=== PATIENT | male | born 1955 | race Caucasian/White ===

== ENCOUNTER 2017-07-01 07:52 | Emergency (ER) | payer OTHER ==
[2017-07-01 07:55] VITALS: BP 183/82; PULSE 70; RESP 14; TEMP 97.9; O2SAT 99
[2017-07-01] MEDS ORDERED: ASPI81CH CHEW ×2 (08:12)
[2017-07-01] MEDS ORDERED: ENAL20TA PO ×2 (08:12)
[2017-07-01] MEDS ORDERED: OMEP20TA PO ×2 (08:12)
[2017-07-01] MEDS ORDERED: KETOROLAC TROMETHAMINE 30 MG/ML (IVP) VIAL IV PUSH ONE ×2 (08:15)
[2017-07-01] MEDS ORDERED: ONDANSETRON HCL 4 MG/2 ML VIAL IV PUSH ONE ×2 (08:15)
[2017-07-01] MEDS ORDERED: SODIUM CHLOR 0.9% 1000 ML INJ 1,000 ML IV ONE ×2 (08:15)
[2017-07-01 08:30] VITALS: BP 156/94; PULSE 60; RESP 15; O2SAT 99
[2017-07-01 08:30] LABS: AUTOMATED NEUTROPHIL # 10.9 TH/MM3 (1.8-7.7); BACTERIA, URINE RARE /hpf; BASOPHIL % 0.3 % (0.0-2.0); BILIRUBIN, URINE NEG (NEG); BLOOD, URINE LARGE (NEG); EOSINOPHIL % 0.2 % (0.0-4.0); GLUCOSE,URINE NEG (NEG); HEMATOCRIT 46.7 % (39.0-51.0); HEMOGLOBIN 15.6 GM/DL (13.0-17.0); HYALINE CAST, URINE 1 /lpf (RARE); KETONE, URINE NEG (NEG); LYMPH % 9.4 % (9.0-44.0); LYMPHOCYTE # 1.2 TH/MM3 (1.0-4.8); MEAN CELL VOLUME 90.7 FL (80.0-100.0); MEAN CORPUSCULAR HEMOGLOBIN 30.4 PG (27.0-34.0); MEAN CORPUSCULAR HGB CONC 33.5 % (32.0-36.0); MEAN PLATELET VOLUME 9.5 FL (7.0-11.0); MONO % 5.7 % (0.0-8.0); MONOCYTE # 0.7 TH/MM3 (0-0.9); MUCUS URINE MOD /lpf (OCC); NEUT % 84.4 % (16.0-70.0); NITRITE,URINE NEG (NEG); PH, URINE 5.5 (5.0-8.5); PLATELET COUNT 249 TH/MM3 (150-450); RED BLOOD COUNT 5.15 MIL/MM3 (4.50-5.90); RED CELL DISTRIBUTION WIDTH 13.9 % (11.6-17.2); URINE COLOR YELLOW (YELLW/STRAW); URINE LEUKOCYTE ESTERASE NEG (NEG); WHITE BLOOD COUNT 12.9 TH/MM3 (4.0-11.0)
[2017-07-01 08:47] LABS: ALBUMIN 3.6 GM/DL (3.4-5.0); ALT (GPT) 27 U/L (12-78); AST (GOT) 18 U/L (15-37); BICARBONATE 25.7 MEQ/L (21.0-32.0); BLOOD UREA NITROGEN 16 MG/DL (7-18); CALCIUM 8.9 MG/DL (8.5-10.1); CHLORIDE 106 MEQ/L (98-107); CREATININE 1.14 MG/DL (0.60-1.30); GLOMERULAR FILTRATION RATE 65 ML/MIN (>89); GLUCOSE,RANDOM 116 MG/DL (74-106); LIPASE 179 U/L (73-393); SODIUM (NA) 140 MEQ/L (136-145)
[2017-07-01 08:50] LABS: ALKALINE PHOSPHATASE 84 U/L (45-117); TOTAL BILIRUBIN ADULT 0.4 MG/DL (0.2-1.0); TOTAL PROTEIN 7.4 GM/DL (6.4-8.2)
--- NOTE | 2017-07-01 08:55 | PD ---
HPI Chief Complaint: Flank/Kidney Pain Time Seen by Provider: 08:00 Travel History International Travel<30 days: No Contact w/Intl Traveler<30days: No Traveled to known affect area: No History of Present Illness HPI 62-year-old male presents with left flank pain that is been present since about 5 AM this morning. He states he is also nauseous. He denies any other concurrent complaints. He states the pain goes into his lower groin. He states he's had a kidney stone before couple years ago. He states he lives locally but has not had to come to the hospital before recently. Quality pain is sharp. Severity severe. He denies specific modifying factors. [employer] line is used to supplement history given patient speaks [place] [facility] Past Medical History Hypertension: Yes Kidney Stones: Yes Past Surgical History Surgical History: No Previous Surgery Social History Alcohol Use: No Tobacco Use: No Substance Use: No Allergies-Medications (Allergen,Severity, Reaction): Coded Allergies: moxifloxacin (Verified Allergy, Unknown, 07/01/17) Reported Meds & Prescriptions Reported Meds & Active Scripts Active Reported Aspirin 81 Mg Chew 81 Mg CHEW DAILY Enalapril (Enalapril Maleate) 20 Mg Tab 20 Mg PO DAILY Omeprazole 20 Mg Tab 20 Mg PO DAILY Review of Systems Except as stated in HPI: all other systems reviewed are Neg Physical Exam Narrative GENERAL: Well-nourished, well-developed patient. Uncomfortable SKIN: Warm and dry. HEAD: Normocephalic and atraumatic. EYES: No injection or drainage. ENT: No nasal drainage noted. NECK: Supple, trachea midline. CARDIOVASCULAR: Regular rate and rhythm RESPIRATORY: No increased effort. No accessory muscle use. GASTROINTESTINAL: Abdomen soft, tender left abdomen, nondistended. No rebound EXTREMITIES: No edema. NEUROLOGICAL: Awake and alert. Motor and sensory grossly within normal limits. Normal speech. Data Data Last Documented VS Vital Signs Date Time Temp Pulse Resp B/P (MAP) Pulse Ox O2 Delivery O2 Flow Rate FiO2 07/01/17 08:09 18 07/01/17 07:55 97.9 70 183/82 (115) 99 Orders Orders Complete Blood Count With Diff (07/01/17 08:00) Comprehensive Metabolic Panel (07/01/17 08:00) Urinalysis - C+S If Indicated (07/01/17 08:00) Lipase (07/01/17 08:00) Ct Abd/Pel W/O Iv Contrast (07/01/17 ) Iv Access Insert/Monitor (07/01/17 08:00) Ketorolac Inj (Toradol Inj) (07/01/17 08:15) Ondansetron Inj (Zofran Inj) (07/01/17 08:15) Sodium Chlor 0.9% 1000 Ml Inj (Ns 1000 M (07/01/17 08:15) Ed Discharge Order (07/01/17 09:26) Labs Laboratory Tests Test 07/01/17 08:10 White Blood Count 12.9 TH/MM3 Red Blood Count 5.15 MIL/MM3 Hemoglobin 15.6 GM/DL Hematocrit 46.7 % Mean Corpuscular Volume 90.7 FL Mean Corpuscular Hemoglobin 30.4 PG Mean Corpuscular Hemoglobin Concent 33.5 % Red Cell Distribution Width 13.9 % Platelet Count 249 TH/MM3 Mean Platelet Volume 9.5 FL Neutrophils (%) (Auto) 84.4 % Lymphocytes (%) (Auto) 9.4 % Monocytes (%) (Auto) 5.7 % Eosinophils (%) (Auto) 0.2 % Basophils (%) (Auto) 0.3 % Neutrophils # (Auto) 10.9 TH/MM3 Lymphocytes # (Auto) 1.2 TH/MM3 Monocytes # (Auto) 0.7 TH/MM3 Eosinophils # (Auto) 0.0 TH/MM3 Basophils # (Auto) 0.0 TH/MM3 CBC Comment DIFF FINAL Differential Comment Urine Color YELLOW Urine Turbidity HAZY Urine pH 5.5 Urine Specific [place] 1.027 Urine Protein 30 mg/dL Urine Glucose (UA) NEG mg/dL Urine Ketones NEG mg/dL Urine Occult Blood LARGE Urine Nitrite NEG Urine Bilirubin NEG Urine Urobilinogen 2.0 MG/DL Urine Leukocyte Esterase NEG Urine RBC 86 /hpf Urine WBC 4 /hpf Urine Bacteria RARE /hpf Urine Hyaline Casts 1 /lpf Urine Mucus MOD /lpf Microscopic Urinalysis Comment CULT NOT INDICATED Blood Urea Nitrogen 16 MG/DL Creatinine 1.14 MG/DL Random Glucose 116 MG/DL Total Protein 7.4 GM/DL Albumin 3.6 GM/DL Calcium Level 8.9 MG/DL Alkaline Phosphatase 84 U/L Aspartate Amino Transf (AST/SGOT) 18 U/L Alanine Aminotransferase (ALT/SGPT) 27 U/L Total Bilirubin 0.4 MG/DL Sodium Level 140 MEQ/L Potassium Level 3.7 MEQ/L Chloride Level 106 MEQ/L Carbon Dioxide Level 25.7 MEQ/L Anion Gap 8 MEQ/L Estimat Glomerular Filtration Rate 65 ML/MIN Lipase 179 U/L MDM Medical Decision Making Medical Screen Exam Complete: Yes Emergency Medical Condition: Yes Medical Record Reviewed: Yes (no prior records) Interpretation(s) CBC & BMP Diagram 07/01/17 08:10 Total Protein 7.4, Albumin 3.6, Calcium Level 8.9, Alkaline Phosphatase 84, Aspartate Amino Transf (AST/SGOT) 18, Alanine Aminotransferase (ALT/SGPT) 27, Total Bilirubin 0.4 Differential Diagnosis Kidney stone, UTI, renal failure, pancreatitis Narrative Course Will check blood work, urinalysis, CT scan and dose with IV fluids, Toradol, Zofran and reevaluate ct with stone passed into bladder,Patient denies any new complaints and states that they are feeling better. Patient happy with care, all questions answered. Patient knows that follow up is incumbent on them and to return to the emergency room immediately if new or worsening symptoms develop. Patient given strict return precautions, vitals reviewed and are normal, agrees to further workup as an outpatient. Diagnosis Primary Impression: Kidney stone Patient Instructions: General Instructions Additional Instructions: return as needed, follow with urology, tylenol as needed Med/Other Pt SpecificInfo: No Change to Meds Disposition: 01 DISCHARGE HOME Condition: Stable Priti Colon MD Jul 01, 2017 08:55
--- NOTE | 2017-07-01 09:21 | RADRPT ---
EXAM DATE/TIME: 07/01/2017 08:37 [facility] COMPARISON: No previous studies available for comparison. INDICATIONS : Left flank pain, vomiting. ORAL CONTRAST: No oral contrast ingested. RADIATION DOSE: 14.76 CTDIvol (mGy) MEDICAL HISTORY : Renal calculi. SURGICAL HISTORY : None. ENCOUNTER: Initial ACUITY: 1 day PAIN SCALE: 9/10 LOCATION: Left facial TECHNIQUE: Volumetric scanning of the abdomen and pelvis was performed. Using automated exposure control and ad justment of the mA and/or kV according to patient size, radiation dose was kept as low as reasonably achievable to obtain optimal diagnostic quality images. DICOM format image data is available electro nically for review and comparison. FINDINGS: LOWER LUNGS: The visualized lower lungs are clear. LIVER: Homogeneous density without lesion. There is no dilation of the biliary tree. No calcified gallston es. SPLEEN: Focal densely calcified lesion in the superior spleen. Spleen otherwise appears unremarkable by CT. PANCREAS: Within normal limits. KIDNEYS: Multiple small punctate to 3 mm calcified calyceal calculi in the left kidney with the largest in the anterior mid left kidney. There is very mild left-sided hydronephrosis and hydroureter without addit ional radiopaque ureteral calculi. Ill-defined calcified densities in the inferior pole of the left k idney and scattered in the right kidney may reflect milk of calcium. The no significant hydronephrosi s on the right. ADRENAL GLANDS: Within normal limits. VASCULAR: There is no aortic aneurysm. BOWEL/MESENTERY: Mild sigmoid diverticulosis without significant inflammatory change to suggest diverticulitis. Bowel otherwise appears unremarkable without evidence for obstruction. There is no significant free fluid o r drainable fluid collection. ABDOMINAL WALL: Small fat containing right periumbilical hernia. RETROPERITONEUM: There is no lymphadenopathy. BLADDER: 3 mm calcified calculus noted dependently in the bladder. Bladder otherwise appears unremarkable. REPRODUCTIVE: Nonspecific prostate enlargement. INGUINAL: Bilateral fat containing inguinal hernias. MUSCULOSKELETAL: Within normal limits for patient age. CONCLUSION: 1. Multiple punctate to 3 mm nonobstructing left renal calyceal calculi. Mild left hydroureteronephro sis without additional radiopaque calculi. However, there is a small 3 mm calcified calculus noted in the bladder. This may represent recent passage of a left-sided calculus. 2. Additional ancillary findings include mild sigmoid diverticulosis, small periumbilical fat-contain ing hernia, and bilateral fat containing inguinal hernias. Javier Harrington MD on July 01, 2017 at 9:10 Board Certified Radiologist. This report was verified electronically.
[2017-07-01 10:25] VITALS: BP 131/71
== END 2017-07-01 13:19 | disposition home or self-care (01) ==
LOC: NEPE 07:52
DX: N20.0 Calculus of kidney (principal); R11.0 Nausea; I10 Essential (primary) hypertension; K57.30 Diverticulosis of large intestine without perforation or abscess without bleeding; K42.9 Umbilical hernia without obstruction or gangrene; K40.20 Bilateral inguinal hernia, without obstruction or gangrene, not specified as recurrent; Z88.8 Allergy status to other drugs, medicaments and biological substances; Z79.82 Long term (current) use of aspirin; Z79.899 Other long term (current) drug therapy
CPT/HCPCS: 74176; 80053; 81001; 83690; 85025; 96374; 96375; 99285; J1885; J2405; J7030